=== PATIENT | female | born 1975 | race Two or more races ===

== ENCOUNTER 2024-12-22 17:33 | Inpatient (IN) | payer MEDICAID, OTHER ==
[~2024-12-22] VITALS: Ht 154.9 cm; Wt 110.5 kg
--- NOTE | 2024-12-22 18:15 | ECG ---
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
--- NOTE | 2024-12-22 18:29 | ED.PDOC ---
History of Present Illness HPI Comments 49y F who presents to the ED for chief complaint of multiple complaints. Pt states since Friday, she has been having shortness of breath with associated multiple episodes of hematemesis and diffuse abdominal pain. Pt states she also started to have L leg weakness and weakness. Pt states she also had L sided pressure like chest pain rating the pain 8/10, with no associated exacerbating or relieving factors. Pt otherwise states she had bout of COVID 8x weeks prior. Pt otherwise denies any other symptoms at this time. Chief Complaint: General Weakness Time Seen by MD: 18:25 Reviewed Notes: Medications, Allergies Allergies: Coded Allergies: Prochlorperazine (Verified Allergy, Unknown, 12/22/24) Information Source: Patient, Past Medical Record Mode of Arrival: Ambulatory Severity: Moderate Timing: Days Duration: Since onset Prehospital treatment: None Past Medical History PAST MEDICAL HISTORY: Denies Past Medical History (Other): intestinal surgery during childhood Surgical History: ASSET MANAGER History: Denies all ASSET MANAGER Hx Family History Family History: Reviewed,noncontributory to illness Social History Smoker: Non-Smoker Alcohol: Denies ETOH Use Drugs: Denies Drug Use Lives In: Home Constitutional: reports: malaise, weakness; denies: chills, diaphoresis, fatigue, fever, sweats, others EENTM: denies: blurred vision, double vision, ear bleeding, ear discharge, ear drainage, ear pain, ear ringing, eye pain, eye redness, hearing loss, mouth pain, mouth swelling, nasal discharge, nose bleeding, nose congestion, nose pain, photophobia, tearing, throat pain, throat swelling, voice changes, others Respiratory: reports: shortness of breath; denies: cough, hemoptysis, orthopnea, SOB at rest, SOB with excertion, stridor, wheezing, others Cardiovascular: denies: chest pain, dizzy spells, diaphoresis, Dyspnea on exertion, edema, irregular heart beat, left arm pain, lightheadedness, palpitations, PND, syncope, others Gastrointestinal: reports: hematemesis; denies: abdomen distended, abdominal pain, blood streaked bowels, constipated, diarrhea, dysphagia, difficulty swallowing, melena, nausea, poor appetite, poor fluid intake, rectal bleeding, rectal pain, vomiting, others Genitourinary: denies: abnormal vagina bleeding, burning, dyspareunia, dysuria, flank pain, frequency, hematuria, incontinence, pain, , vagina discharge, urgency, others Neurological: denies: dizziness, fainting, headache, left sided numbness, left sided weakness, numbness, paresthesia, pre-existing deficit, right sided numbness, right sided weakness, seizure, speech problems, tingling, tremors, weakness, others Musculoskeletal: reports: joint swelling (LLE); denies: back pain, gout, joint pain, muscle pain, muscle stiffness, neck pain, others Integumetry: denies: bruises, change in color, change in hair/nails, dryness, laceration, lesions, lumps, rash, wounds, others Allergic/Immunocompromised: denies: Difficulty Healing, Frequent Infections, Hives, Itching, others Hematologic/Lymphatic: denies: anemia, blood clots, easy bleeding, easy bruising, swollen glands, others Endocrine: denies: excessive hunger, excessive sweating, excessive thirst, excessive urination, flushing, intolerance to cold, intolerance to heat, unexplained weight gain, unexplained weight loss, others Psychiatric: denies: anxiety, bipolar disorder, depression, hopeless, panic disorder, schizophrenia, sleepless, suicidal, others All Other Systems: Reviewed and Negative Physical Exam General Appearance: Moderate Distress HEENT: Normal ENT Inspection, Pharynx Normal, TMs Normal Neck: Full Range of Motion, Non-Tender, Normal, Normal Inspection Respiratory: Chest Non-Tender, Lungs Clear, No Accessory Muscle Use, No Respiratory Distress, Normal Breath Sounds Cardiovascular: No Edema, No JVD, No Murmur, No Gallop, Normal Peripheral Pulses, Regular Rate/Rhythm Breast Exam: Deferred Gastrointestinal: No Organomegaly, Non Tender, No Pulsatile Mass, Normal Bowel Sounds, Soft Genitalia: Deferred Pelvic: Deferred Rectal: Deferred Extremities: No calf tenderness, Normal capillary refill, No pedal edema Musculoskeletal : Location: Left Extremity Location: Leg Apperance: Swelling, Tenderness: Moderate Neurologic: Alert, publicity person II-XII nml as Tested, Motor Weakness, Normal Affect, Normal Mood, No Sensory Deficits Cerebellar Function: Normal Reflexes: Normal Skin: Dry, Normal Color, Warm Lymphatic: No Adenopathy Was a procedure done? Was a procedure done?: No EKG EKG : Pulse Rate (adult): 123 [place]: Normal Cardiac Rhythm: ST Block: None ST: Nonsp Differential Dx Considerations may include: esophageal varices, pancreatics, UTI, PE,DVT, colitis, enteritis, anemia, dehyration, PNA, acute respiratory distress, X-Ray, Labs, Meds, VS Vital Signs Date Time Temp Pulse Resp B/P (MAP) Pulse Ox O2 Delivery O2 Flow Rate FiO2 12/22/24 20:07 98.4 121 20 144/89 (107) 98 98.4 12/22/24 19:24 123 12/22/24 17:57 123 12/22/24 17:36 98.6 129 22 150/90 95 98.6 Lab Test 12/22/24 19:23 12/22/24 18:23 Range/Units Troponin I High Sensitivity < 3 L 3 L </=34 ng/L Vitamin B12 Level Pending Vitamin D 25-Hydroxy Pending White Blood Count 4.9 4.4-10.8 10^3/uL Red Blood Count 3.73 L 4.0-5.20 10^6/uL Hemoglobin 11.9 L 12.2-16.2 g/dL Hematocrit 35.3 L 36.0-46.0 % Mean Corpuscular Volume 94.6 80.0-100.0 fL Mean Corpuscular Hemoglobin 32.0 28.0-32.0 pg Mean Corpuscular Hemoglobin Concent 33.8 32.0-36.0 g/dL Red Cell Distribution Width 17.1 H 11.8-14.3 % Platelet Count 115 L 140-450 10^3/uL Mean Platelet Volume 7.4 6.9-10.8 fL Neutrophils (%) (Auto) 72.6 37.0-80.0 % Lymphocytes (%) (Auto) 17.7 10.0-50.0 % Monocytes (%) (Auto) 7.7 0.0-12.0 % Eosinophils (%) (Auto) 1.6 0.0-7.0 % Basophils (%) (Auto) 0.4 0.0-2.0 % Neutrophils # (Auto) 3.5 1.6-8.6 10 ^3/uL Lymphocytes # (Auto) 0.9 0.4-5.4 10 ^3/uL Monocytes # (Auto) 0.4 0-1.3 10 ^3/uL Eosinophils # (Auto) 0.1 0-0.8 10 ^3/uL Basophils # (Auto) 0 0-0.2 10 ^3/uL Nucleated Red Blood Cells 0.1 % D-Dimer, Quantitative 1.41 H 0.0-0.49 mg/L FEU Sodium Level 136 136-145 mmol/L Potassium Level 3.3 L 3.5-5.1 mmol/L Chloride Level 98 98-107 mmol/L Carbon Dioxide Level 27 20-31 mmol/L Anion Gap 11 5-15 Blood Urea Nitrogen < 5 L 9-23 mg/dL Creatinine 0.58 0.550-1.02 mg/dL Glomerular Filtration Rate Calc 111 >90 mL/min BUN/Creatinine Ratio 8.6 L 10.0-20.0 Serum Glucose 158 H 74-106 mg/dL Hemoglobin A1c Pending Calcium Level 8.4 L 8.7-10.4 mg/dL Phosphorus Level Pending Magnesium Level Pending Total Bilirubin Pending Direct Bilirubin Pending Aspartate Amino Transferase (AST) Pending Alanine Aminotransferase (ALT) Pending Alkaline Phosphatase Pending Total Protein Pending Albumin Pending Thyroid Stimulating Hormone (TSH) Pending Beta HCG, Quantitative Pending PROCEDURE(s): LLDVT - LT Lower DVT Impression: 1. No left femoropopliteal venous thrombosis The patient's CBC shows anemia with a hemoglobin of 11.9 The patient's D-dimer is 1.41 The chemistry panel is within normal limits. The CAT scan of the chest is pending The patient is being admitted The CAT scan will be followed by the hospitalist Images Reviewed?: Images reviewed and evaluated by me Time of 1ST Reevaluation: 17:00 Reevaluation 1ST: Unchanged Patient Education/Counseling: Diagnosis, Treatment, Prognosis Family Education/Counseling: No Family Present SEPSIS Sepsis Screen Date sepsis recognized/suspect: Dec 22, 2024 Time Sepsis recognized/suspect: 1737 Recent Procedure: No On Antibiotic Therapy: No Respiratory Rate >20: Yes Heart Rate >90: Yes Temp<36 C (96.8 F) or >38.3 C: No SBP <90 or MAP <65 mmHG: No New Acute Mental Status Change: No Is the patient on CPAP, BIPAP,: No Physician Orders Urinalysis (12/22/24 18:05) Heplock Iv (12/22/24 18:05) Healthcare Business Analyst (12/22/24 18:05) Blood Pressure (12/22/24 18:05) Pulse Oximetry (12/22/24 18:05) Lt Lower Dvt (12/22/24 18:05) Ct Angio Chest Contrast (12/22/24 18:05) Electrocardigram (12/22/24 19:05) Electrocardigram (12/22/24 21:05) Drug Screen (12/22/24 20:16) Magnesium (12/22/24 20:16) Hepatic Panel (12/22/24 20:16) Hemoglobin A1c (12/22/24 20:16) Complete Blood Count (12/23/24 04:00) Basic Metabolic Panel (12/23/24 04:00) Phosphorus (12/22/24 20:16) Thyroid Stimulating Hormone (12/22/24 20:16) Vitamin B12 (12/22/24 20:16) Vitamin D, 25-Hydroxy (12/22/24 20:16) Lactic Acid W/ Reflex Order (12/22/24 20:16) Beta Hcg, Quantitative (12/22/24 20:16) Vital Signs Date Time Temp Pulse Resp B/P (MAP) Pulse Ox O2 Delivery O2 Flow Rate FiO2 12/22/24 20:07 98.4 121 20 144/89 (107) 98 98.4 12/22/24 19:24 123 12/22/24 17:57 123 12/22/24 17:36 98.6 129 22 150/90 95 98.6 Laboratory Tests Test 12/22/24 18:23 White Blood Count 4.9 10^3/uL (4.4-10.8) Departure 1 Departure Time of Disposition: 20:31 Impression: Primary Impression: Acute chest pain Additional Impression: Elevated d-dimer Disposition: 09 ADMITTED INPATIENT Admit to: Tele Condition: Fair Critical Care Note Critical Care Time?: Yes (45 min-critical care time only) Stability Stability form required: Yes Unstable for transfer: Telemetry monitoring (Telemetry monitoring required), ED Physician Assesment (Clinical assesment) Heart Score Heart Score: Heart Score Response (Comments) Value History Slightly Suspicious 0 EKG Normal 0 Age 45-64 1 Risk Factors No known risk factors 0 Troponin Normal limit 0 Total 1 I personally scribed for NIRAJ GARCIA MD ([email or web address]) on 12/22/24 at 18:29. Anju ctronically submitted by Kelley Poole ([email or web address]). I personally scribed for INRAJ GARCIA MD ([email or web address]) on 12/22/24 at 19:38. Electronically submitted by Kelley Poole ([email or web address]). NIRAJ GARCIA MD Dec 22, 2024 18:29
[2024-12-22 18:44] LABS: Hematocrit 35.3 % (36.0-46.0); Hemoglobin 11.9 g/dL (12.2-16.2); Mean Corpuscular Hemoglobin 32.0 pg (28.0-32.0); Mean Corpuscular Volume 94.6 fL (80.0-100.0); Nucleated Red Blood Cells % 0.1 %
[2024-12-22 18:52] LABS: Chloride 98 mmol/L (98-107)
[2024-12-22 18:53] LABS: Anion Gap 11 (5-15); Carbon Dioxide 27 mmol/L (20-31)
[2024-12-22 19:07] LABS: BUN/Creatinine Ratio 8.6 (10.0-20.0); Blood Urea Nitrogen < 5 mg/dL (9-23); Calcium 8.4 mg/dL (8.7-10.4); Glucose 158 mg/dL (74-106); Potassium 3.3 mmol/L (3.5-5.1); Sodium 136 mmol/L (136-145)
--- NOTE | 2024-12-22 19:15 | DVH ---
Left lower extremity venous duplex Clinical History: pain Comparison: None Technique: Duplex Doppler evaluation of the deep venous system of the left lower extremity from the common femor al vein to the popliteal vein including color Doppler and spectral/pulsed waveform analysis was perfo rmed. Findings: The common femoral vein demonstrates appropriate compressibility and waveform variability. There is compressibility/patency of the great saphenous vein at the proximal thigh. The femoral vein demonstrates appropriate compressibility and waveform variability. The deep femoral vein demonstrates appropriate compressibility and waveform variability. The popliteal vein demonstrates appropriate compressibility and waveform variability. There is normal compressibility at the tibioperoneal trunk. Impression: 1. No left femoropopliteal venous thrombosis.
[2024-12-22 20:44] LABS: Albumin 3.4 g/dL (3.2-4.8); Magnesium 1.7 mg/dL (1.6-2.6)
[2024-12-22 21:01] LABS: Thyroid Stimulating Hormone 2.56 uIU/mL (0.55-4.78)
[2024-12-22] MEDS: SODIUM CHLORIDE 0.9% 500 ML IV ONE ×2 (21:26→21:57)
[2024-12-22] MEDS: IOHEXOL 350 MG/ML 100ML IJ ONE ×2 (21:26)
[2024-12-22 21:28] LABS: Alanine Aminotransferase 51.0 U/L (7-40); Alkaline Phosphatase 193.0 U/L (46-116); Beta HCG, Quantitative 0.2 mIU/mL (1.5-4.2); Bilirubin, Direct 1.1 mg/dL (<0.3); Bilirubin, Total 2.3 mg/dL (0.2-1.0); Total Protein 8.3 g/dL (5.7-8.2)
[2024-12-22] MEDS ORDERED: ACETAMINOPHEN 325 MG TAB PO PRN (21:30)
[2024-12-22 21:38] LABS: Lactic Acid w/Reflex 4.1 mmol/L (0.4-2.0)
--- NOTE | 2024-12-22 21:50 | DVH ---
EXAM: CT CT ANGIO CHEST CONTRAST History: pain and sob Comparison Study: None TECHNIQUE: A digital enterprise infrastructure architect image was obtained. During the uneventful, intravenous administration of c ontrast material, multislice data acquisition was obtained through the chest. 3-D postprocessing is performed by technologist including MIP imaging Radiation Dose : CTDI vol 29.37 mGy, DLP 29.37 mGy*cm. Findings: Evaluation is degraded by respiratory motion. Lungs: There is mosaic attenuation throughout the lungs. Pleura: Unremarkable Heart/Great vessels: No cardiomegaly or pericardial effusion. There is no CT evidence of central pulm onary embolism. Suboptimal evaluation of peripheral pulmonary arteries. No CT evidence of right hea rt strain. Mediastinum: Nonspecific mildly enlarged mediastinal nodes measuring up to 12 mm short axis. Soft tissues/Bones: Unremarkable Upper abdomen: Diffuse hypoattenuation of the liver suggestive of hepatic steatosis. Suboptimally ass essed multifocal regions of low-attenuation within the periphery of the liver. Incompletely assessed hepatomegaly. Incompletely assessed upper abdominal ascites. Incompletely assessed right renal cyst. Splenomegaly. Impression: 1. No CT evidence of acute central pulmonary embolism. Suboptimal assessment of the peripheral pulmo nary arteries. No CT evidence of right heart strain. 2. Nonspecific mosaic attenuation of the lungs, which may be referable to air trapping in the appropr iate clinical setting. 3. Nonspecific mild mediastinal adenopathy. 4. Incompletely assessed hepatomegaly and hepatic steatosis with regions of low attenuation within th e periphery of the liver. MRI of the abdomen is suggested in further assessment. 5. Incompletely assessed upper abdominal ascites. 6. Additional findings as detailed.
--- NOTE | 2024-12-22 21:54 | DVH ---
CLINICAL HISTORY: SOB TECHNIQUE: Chest 2 views of the chest were obtained. COMPARISON: CT CT ANGIO CHEST CONTRAST on DOS: 12/22/24 FINDINGS: The heart size and pulmonary vasculature are normal. The lungs are clear. No pleural effusion is pres ent. IMPRESSION: NO ACUTE CARDIOPULMONARY PROCESS.
[2024-12-22] MEDS: PANTOPRAZOLE 40 MG/10 ML VIAL INJ IV ONE (21:57)
[2024-12-22] MEDS: ONDANSETRON HCL 4 MG/2 ML VIAL IV ONE (21:57)
[2024-12-22 22:50] LABS: COVID19 ANTIGEN SOFIA FIA NEGATIVE (NEGATIVE)
[2024-12-22] MEDS ORDERED: DEXTROSE (50%) 50ML SYRG IV PRN (23:00)
--- NOTE | 2024-12-22 23:03 | DVHHPRES ---
History of Present Illness Resident Creating Document: SABINE BLACK History of Present Illness Ms. Joshua is a 49 year old female with prior medical history of alcohol abuse, who presents today with chief complaint of nausea and lethargy. The patient states that since Friday she has had progressive onset of shortness of breath on minimal exertion, generalized body aches, diffuse abdominal pain, diarrhea, vomiting, left leg swelling, left sided pressure like chest pain, non-radiating, 8/10 intensity, without aggravating or relieving factors. She states that she h ad COVID 8 weeks prior and has not felt well since. Due to persistence of shortness of breath, the patient sought medical attention in the emergency department. On evaluation in the ED, the patient was afebrile, tachycardic, and hypertensive. Twelve lead EKG Initial labs show microcytic anemia, thrombocytopenia, hypokalemia, elevated LFTs, A1c 7.9, D-dimer 1.41, and lactic acid 4.1. UA with no significant findings, UDS negative, plasma/serum alcohol 64.6. Troponins were negative. chest x-ray shows no acute cardiopulmonary process. CT angio shows no evidence of acute central pulmonary embolism, no evidence of right heart strain, nonspecific mosaic attenuation of the lungs. Left venous duplex ultrasound shows no evidence of DVT. Patient was started on IV Protonix, IV fluids, and IV antibiotics. She was admitted for further workup and monitoring. Psych: Addictions (Alcoholism) Past Surgical History: , Other (Intestinal surgery at ) Family History: None Smoke: No ALCOHOL: heavy (Drinks 2-4 alcoholic beverages daily) Drugs: None Lives: with Family Domestic Violence: Neg Review of Systems Review of Systems Constitutional: Refers generalized body aches and malaise, Denies weight loss, fever and chills. HEENT: Denies changes in vision and hearing. Respiratory: Refers shortness of breath denies cough Cardiovascular: Refers left-sided chest tightness, Denies palpitations GI: Refers diarrhea and vomiting, Denies abdominal distention, diarrhea : Denies dysuria and urinary frequency. Musculoskeletal: Refers left-sided leg swelling Skin: Denies rash and pruritus. Neurological: denies dizziness headache vision or hearing problems Allergies: Coded Allergies: Prochlorperazine (Verified Allergy, Unknown, 12/22/24) Medications Current Medications Medications Dose Ordered Sig/Gunnar Route Start Time Stop Time Status Last Admin Dose Admin Acetaminophen 325 mg Q4HP PRN PO 12/22/24 21:30 Enoxaparin Sodium 40 mg DAILY SC 12/23/24 10:00 Ondansetron HCl 4 mg Q4HPRN PRN IV 12/23/24 01:45 Pantoprazole Sodium 40 mg DAILY IV 12/23/24 10:00 Ceftriaxone Sodium 50 ml @ 100 mls/hr DAILY@09 IV 12/22/24 23:00 UNV Azithromycin 250 ml @ 125 mls/hr DAILY IV 12/22/24 23:00 UNV Diagnostic Test (Pha) 1 strip ACHS 12/23/24 07:00 UNV Insulin Human Regular ACHS SC 12/23/24 07:00 UNV Dextrose 50 ml UD PRN IV 12/22/24 23:00 UNV Sodium Chloride 1,000 ml @ 100 mls/hr Q10H IV 12/22/24 23:00 UNV Exam Vital Signs Vital Signs Date Time Temp Pulse Resp B/P (MAP) Pulse Ox O2 Delivery O2 Flow Rate FiO2 12/22/24 22:24 98.5 115 20 145/61 (89) 98 98.5 Exam General: The patient alert and oriented in person place and time. Patient following commands HEENT: Normocephalic, atraumatic, normal reactive pupils, EOM intact, pink conjunctiva, pink dry mucous membrane Respiratory/pulmonary: Bilateral chest expansion, no pain on palpation of chest wall, clear lungs bilaterally, vesicular murmurs present in almost all lung viera, no associated crackles or wheezes. Cardiovascular: Normal RRR, normal S1 and S2, no murmurs Abdomen: Abdomen nondistended, normal bowel sounds, soft, there is no pain to palpation in any of the abdominal quadrants, no palpable masses. Extremities: No deformities, bilateral leg edema L>R, normal pulses Skin: No rashes or pruritus, there is no sacral edema present at this time. Neurological: Intact cranial nerves with no focal neurologic deficits, patient with bilateral tremors Labs/Xrays Labs Test 12/22/24 22:50 12/22/24 21:43 12/22/24 20:55 12/22/24 19:23 Range/Units Influenza Type A Antigen Negative Negative Influenza Type B Antigen Negative Negative SARS-CoV-2 Antigen (Rapid) Negative NEGATIVE Troponin I High Sensitivity < 3 L </=34 ng/L Vitamin B12 Level 318 211-911 pg/mL Vitamin D 25-Hydroxy 59.7 30.0-100 ng/mL Test 12/22/24 18:23 Range/Units White Blood Count 4.9 4.4-10.8 10^3/uL Red Blood Count 3.73 L 4.0-5.20 10^6/uL Hemoglobin 11.9 L 12.2-16.2 g/dL Hematocrit 35.3 L 36.0-46.0 % Mean Corpuscular Volume 94.6 80.0-100.0 fL Mean Corpuscular Hemoglobin 32.0 28.0-32.0 pg Mean Corpuscular Hemoglobin Concent 33.8 32.0-36.0 g/dL Red Cell Distribution Width 17.1 H 11.8-14.3 % Platelet Count 115 L 140-450 10^3/uL Mean Platelet Volume 7.4 6.9-10.8 fL Neutrophils (%) (Auto) 72.6 37.0-80.0 % Lymphocytes (%) (Auto) 17.7 10.0-50.0 % Monocytes (%) (Auto) 7.7 0.0-12.0 % Eosinophils (%) (Auto) 1.6 0.0-7.0 % Basophils (%) (Auto) 0.4 0.0-2.0 % Neutrophils # (Auto) 3.5 1.6-8.6 10 ^3/uL Lymphocytes # (Auto) 0.9 0.4-5.4 10 ^3/uL Monocytes # (Auto) 0.4 0-1.3 10 ^3/uL Eosinophils # (Auto) 0.1 0-0.8 10 ^3/uL Basophils # (Auto) 0 0-0.2 10 ^3/uL Nucleated Red Blood Cells 0.1 % D-Dimer, Quantitative 1.41 H 0.0-0.49 mg/L FEU Sodium Level 136 136-145 mmol/L Potassium Level 3.3 L 3.5-5.1 mmol/L Chloride Level 98 98-107 mmol/L Carbon Dioxide Level 27 20-31 mmol/L Anion Gap 11 5-15 Blood Urea Nitrogen < 5 L 9-23 mg/dL Creatinine 0.58 0.550-1.02 mg/dL Glomerular Filtration Rate Calc 111 >90 mL/min BUN/Creatinine Ratio 8.6 L 10.0-20.0 Serum Glucose 158 H 74-106 mg/dL Hemoglobin A1c 7.9 H <5.7 % A1C Calcium Level 8.4 L 8.7-10.4 mg/dL Phosphorus Level 1.6 L 2.4-5.1 mg/dL Magnesium Level 1.7 1.6-2.6 mg/dL Total Bilirubin 2.3 H 0.2-1.0 mg/dL Direct Bilirubin 1.1 H <0.3 mg/dL Aspartate Amino Transferase (AST) 213 H 13-40 U/L Alanine Aminotransferase (ALT) 51 H 7-40 U/L Alkaline Phosphatase 193 H 46-116 U/L Total Protein 8.3 H 5.7-8.2 g/dL Albumin 3.4 3.2-4.8 g/dL Thyroid Stimulating Hormone (TSH) 2.56 0.55-4.78 uIU/mL Beta HCG, Quantitative 0.2 L 1.5-4.2 mIU/mL SEPSIS Sepsis Screen Date sepsis recognized/suspect: Dec 22, 2024 Time Sepsis recognized/suspect: 1737 Recent Procedure: No On Antibiotic Therapy: No Respiratory Rate >20: Yes Heart Rate >90: Yes Temp<36 C (96.8 F) or >38.3 C: No SBP <90 or MAP <65 mmHG: No New Acute Mental Status Change: No Is the patient on CPAP, BIPAP,: No Physician Orders Urinalysis (12/22/24 18:05) Heplock Iv (12/22/24 18:05) Manager Of Health (12/22/24 18:05) Blood Pressure (12/22/24 18:05) Pulse Oximetry (12/22/24 18:05) Lt Lower Dvt (12/22/24 18:05) Ct Angio Chest Contrast (12/22/24 18:05) Electrocardigram (12/22/24 19:05) Electrocardigram (12/22/24 21:05) Drug Screen (12/22/24 20:16) Complete Blood Count (12/23/24 04:00) Basic Metabolic Panel (12/23/24 04:00) Admit (12/22/24 21:24) Allergies (12/22/24 21:24) Code Status (12/22/24 21:24) Acetaminophen Tablet (Tylenol Tablet) (12/22/24 21:30) Enoxaparin Sodium (Lovenox) (12/23/24 10:00) Echo 2d Mode Cardiac Dop (12/22/24 21:24) Condition: Stable (12/22/24 21:24) Stat Ekg For Chest Pain (12/22/24 21:24) Notify Md Of Changes From Base (12/22/24 21:24) Emergency Dysrhythmia Protocol (12/22/24 21:24) Rhythm Strips Once Every Shift (12/22/24 21:24) Chest Two Views Routine (12/22/24 21:24) Potassium Chl 20meq/100ml (12/22/24 21:45) Consistent Carb(Ccho)Diabetes (12/23/24 Breakfast) Pantoprazole (Protonix) (12/23/24 10:00) Ondansetron Hcl (Zofran) (12/23/24 01:45) Blood Alcohol (12/22/24 22:48) Ceftriaxone 1gm/50ml (Rocephin) (12/22/24 23:00) Azithromycin 500mg/ 250ml (Zithromax 50 (12/22/24 23:00) Glucose Blood (Accu-Chek Comfort Curve T (12/23/24 07:00) Insulin R (Human) (Insulin R) (12/23/24 07:00) Dextrose 50% Syringe (12/22/24 23:00) Sodium Chloride 0.9% (12/22/24 23:00) Vital Signs Date Time Temp Pulse Resp B/P (MAP) Pulse Ox O2 Delivery O2 Flow Rate FiO2 12/22/24 22:24 98.5 115 20 145/61 (89) 98 98.5 12/22/24 20:07 98.4 121 20 144/89 (107) 98 98.4 12/22/24 19:24 123 12/22/24 17:57 123 12/22/24 17:36 98.6 129 22 150/90 95 98.6 Laboratory Tests Test 12/22/24 18:23 12/22/24 20:55 12/22/24 22:50 White Blood Count 4.9 10^3/uL (4.4-10.8) Lactic Acid Level 4.1 mmol/L (0.4-2.0) *H Pending Medications Medications Dose Ordered Sig/Gunnar Route Start Time Stop Time Status Last Admin Dose Admin Pantoprazole Sodium 40 mg ONCE ONCE IV 12/22/24 21:45 12/22/24 21:47 DC 12/22/24 21:57 40 MG Sodium Chloride 500 ml @ 500 mls/hr Q1H ONCE IV 12/22/24 18:15 12/22/24 19:14 DC 12/22/24 21:26 500 MLS/HR Sodium Chloride 500 ml @ 500 mls/hr Q1H ONCE IV 12/22/24 21:45 12/22/24 22:44 DC 12/22/24 21:57 500 MLS/HR Assessment/Plan Assessment/Plan Assessment and Plan: Possible sepsis secondary to pneumonia (gram positive/gram negative/viral) vs gastroenteritis Lactic acidosis secondary to above Dehydration secondary to above - Ceftriaxone 1 g IV daily - Azithromycin 500 mg IV daily - NS 500 cc bolus x 3 - NS maintenance fluids 100 cc/hr - Blood cultures ordered Intractable vomiting likely due to infectious gastroenteritis - IV fluids - Zofran 4 mg IV Q.4 hours PRN Hypokalemia, 3.3 - Potassium 20 mEq IV, once Mild alcohol withdrawal -CIWA 6 -Monitor patient with serial CIWA scores Alcohol Use Disorder - I have counseled the patient on the importance of complete alcohol cessation for over 12 minutes. Newly diagnosed Type 2 Diabetes Mellitus with hyperglycemia, HbA1c: 7.9 -Mild SSI -Accu-chek -Consistent carbohydrate diet Ruled out PE - CT angio: No CT evidence of acute central pulmonary embolism Ruled out DVT - left venous duplex ultrasound: No left femoral popliteal venous thrombosis Hepatic steatosis Calculated MELD score 27 Transaminitis secondary to above Morbid obesity Counseled strongly on healthy lifestyle habits Diet: Consistent Carbohydrate DVT prophylaxis: Lovenox 40 mg SC dailt GI prophylaxis: Protonix 40 mg IV daily Case discussed with Dr. Borrero Goals of care discussed with the patient and her for over 27 minutes. Full code. Plan discussed with: Patient, Spouse, Other (Nurses) My Orders Orders - SABINE BLACK Procedure Category Date Status Time Drug Screen LAB 12/22/24 Logged 20:16 Complete Blood Count LAB 12/23/24 Verified 04:00 Basic Metabolic Panel LAB 12/23/24 Verified 04:00 Admit ADMIT 12/22/24 Transmitted 21:24 Allergies HELIO 12/22/24 In Process 21:24 Code Status CODE 12/22/24 Transmitted 21:24 Acetaminophen Tablet PHA 12/22/24 In Process (Tylenol Tablet) 21:30 Enoxaparin Sodium PHA 12/23/24 In Process (Lovenox) 10:00 Echo 2d Mode Cardiac US 12/22/24 Logged DOP 21:24 Condition: Stable HELIO 12/22/24 In Process 21:24 Stat Ekg For Chest HELIO 12/22/24 In Process Pain 21:24 Notify Md Of Changes HELOI 12/22/24 In Process From Base 21:24 Emergency Dysrhythmia HELIO 12/22/24 In Process Protocol 21:24 Rhythm Strips Once HELIO 12/22/24 In Process Every Shift 21:24 Chest Two Views XY 12/22/24 Resulted Routine 21:24 Potassium Chl PHA 12/22/24 In Process 20meq/100ml 21:45 Consistent DIET 12/23/24 Transmitted Carb(Ccho)Diabetes Breakfast Pantoprazole PHA 12/23/24 In Process (Protonix) 10:00 Ondansetron Hcl PHA 12/23/24 In Process (Zofran) 01:45 Blood Alcohol LAB 12/22/24 In Process 22:48 Ceftriaxone 1gm/50ml PHA 12/22/24 Logged (Rocephin) 23:00 Azithromycin 500mg/ PHA 12/22/24 Logged 250ml (Zithromax 50 23:00 Glucose Blood PHA 12/23/24 Logged (Accu-Chek Comfort 07:00 Insulin R (Human) PHA 12/23/24 Logged (Insulin R) 07:00 Dextrose 50% Syringe PHA 12/22/24 Logged 23:00 Sodium Chloride 0.9% PHA 12/22/24 Logged 23:00 Date of Service: Dec 22, 2024 Billing Provider: JYOTHI SCHMID MD Common Visit Codes: [id number] INP/OBS CARE (HIGH) Secondary Visit Codes: [id number] CARE PLAN 30 MINUTES SABINE BLACK RESIDENT Dec 22, 2024 23:03 TG LORENZANA RESIDENT Dec 23, 2024 08:41
[2024-12-22 23:50] LABS: Urine Protein, UAD TRACE (Negative)
[2024-12-22 23:54] VITALS: BP 147/87; PULSE 118; TEMP 98.2; O2SAT 96
[2024-12-23] VITALS (8 sets, daily range): BP systolic 125–147; BP diastolic 70–91; PULSE 104–120; RESP 17–18; TEMP 97.8–98.3; O2SAT 96–98
[2024-12-23 00:05] LABS: Amphetamine Screen, Urine Neg (NEGATIVE); Barbiturate Scree,Urine Neg (NEGATIVE); Benzodiazephine Screen, Urine Neg (NEGATIVE); Cannabinoid Screen, Urine Neg (NEGATIVE); Cocaine Screen, Urine Neg (NEGATIVE); Opiate Scree,Urine Neg (NEGATIVE); Phencyclidine Screen, Urine Neg (NEGATIVE)
[2024-12-23] MEDS: ONDANSETRON HCL 4 MG/2 ML VIAL IV PRN (01:22)
[2024-12-23] MEDS: SODIUM CHLORIDE 0.9% 500 ML IV ONE (01:47)
[2024-12-23] MEDS: IOHEXOL 350 MG/ML 100ML IJ ONE (01:58)
[2024-12-23] MEDS: SODIUM CHLORIDE 0.9% 1,000 ML IV SCH (02:52)
[2024-12-23] MEDS: AZITHROMYCIN 500MG/ 250ML 250 ML IV SCH (02:52)
[2024-12-23] MEDS: POTASSIUM CHL 20MEQ/100ML 100 ML IV ONE (05:04)
[2024-12-23] MEDS: ACCU-CHEK COMFORT CURVE STRIP VI SCH (06:13)
[2024-12-23] MEDS: InsuLIN REG 1unit/0.01ml Soln (100units/ml) SC SCH (06:16)
[2024-12-23 08:05] LABS: INR 1.41 (0.9-1.15); Partial Thromboplastin Time 31.9 SEC (24.5-34.5); Prothrombin Time 14.4 sec (9.3-11.8)
[2024-12-23 08:06] LABS: Hematocrit 33.6 % (36.0-46.0); Hemoglobin 11.5 g/dL (12.2-16.2); Mean Corpuscular Hemoglobin 32.6 pg (28.0-32.0); Mean Corpuscular Volume 95.0 fL (80.0-100.0); Nucleated Red Blood Cells % 0.0 %
[2024-12-23 08:08] LABS: Albumin 3.3 g/dL (3.2-4.8); Anion Gap 10 (5-15); Carbon Dioxide 23 mmol/L (20-31); Chloride 100 mmol/L (98-107); Potassium 3.9 mmol/L (3.5-5.1); Total Protein 8.0 g/dL (5.7-8.2)
[2024-12-23 08:09] LABS: Alanine Aminotransferase 49 U/L (7-40); Alkaline Phosphatase 171 U/L (46-116); BUN/Creatinine Ratio 10.0 (10.0-20.0); Bilirubin, Total 3.1 mg/dL (0.2-1.0); Blood Urea Nitrogen < 5 mg/dL (9-23); Calcium 7.8 mg/dL (8.7-10.4); Glucose 138 mg/dL (74-106); Sodium 133 mmol/L (136-145)
[2024-12-23] MEDS: PANTOPRAZOLE 40 MG/10 ML VIAL INJ IV SCH (09:36)
[2024-12-23] MEDS: ENOXAPARIN SOD 40 MG/0.4 ML SYRINGE SC SCH (09:36)
--- NOTE | 2024-12-23 14:51 | DVHPN2 ---
Subjective Patient states that her nausea and abdominal pain has improved. Reviewed: Care Plan, H&P, Labs, Medications Changes from previous H/P or p: No Changes General: Per HPI Objective Vitals Vital Signs Date Time Temp Pulse Resp B/P (MAP) Pulse Ox O2 Delivery O2 Flow Rate FiO2 12/23/24 13:00 98.3 105 17 143/91 (108) 97 98.3 12/23/24 08:00 Room Air* 0 21 Intake/Output Intake and Output 12/23/24 07:00 Intake Total 2300 ml Balance 2300 ml Intake Oral 1500 ml IV Total 800 ml # Voids 1 General Appearance: Alert, Oriented X3, Cooperative, mild distress, Other (Obese) HEENT: Atraumatic, PERRLA Cardiovascular: Normal S1, Normal S2 Abdomen: Normal bowel sounds, Soft, No tenderness, No hepatospenomegaly Musculoskeletal: Normal sensory function, Normal motor function Neuro: Normal gait, Normal speech Skin: Dry, Intact Psych/Mental Status: Mental status NL Medications Current Medications Medications Dose Ordered Sig/Gunnar Route Start Time Stop Time Status Last Admin Dose Admin Enoxaparin Sodium 40 mg DAILY SC 12/23/24 10:00 12/23/24 09:36 40 MG Ondansetron HCl 4 mg Q4HPRN PRN IV 12/23/24 01:45 12/23/24 01:22 4 MG Pantoprazole Sodium 40 mg DAILY IV 12/23/24 10:00 12/23/24 09:36 40 MG Diagnostic Test (Pha) 1 strip ACHS 12/23/24 07:00 12/23/24 11:50 1 STRIP Insulin Human Regular ACHS SC 12/23/24 07:00 12/23/24 06:16 3 UNITS Dextrose 50 ml UD PRN IV 12/22/24 23:00 Sodium Chloride 1,000 ml @ 100 mls/hr Q10H IV 12/22/24 23:00 12/23/24 09:00 100 MLS/HR Thiamine HCl 100 mg DAILY IV 12/23/24 14:15 UNV Multivit/Ca Carb/ B Cmplx/FA/Prenat 1 tab DAILY PO 12/23/24 14:15 UNV Laboratory Results Laboratory Tests 12/23/24 07:09 Chemistry Test 12/22/24 18:23 12/23/24 07:09 Albumin 3.4 g/dL (3.2-4.8) 3.3 g/dL (3.2-4.8) Calcium Level 8.4 mg/dL (8.7-10.4) L 7.8 mg/dL (8.7-10.4) L Magnesium Level 1.7 mg/dL (1.6-2.6) Phosphorus Level 1.6 mg/dL (2.4-5.1) L Total Protein 8.3 g/dL (5.7-8.2) H 8.0 g/dL (5.7-8.2) Coagulation Test 12/22/24 18:23 12/23/24 07:09 D-Dimer, Quantitative 1.41 mg/L FEU (0.0-0.49) H Prothrombin Time 14.4 sec (9.3-11.8) H Prothrombin Time INR 1.41 (0.9-1.15) H Activated Partial Thromboplast Time 31.9 SEC (24.5-34.5) LFT Test 12/22/24 18:23 12/23/24 07:09 Alanine Aminotransferase (ALT) 51 U/L (7-40) H 49 U/L (7-40) H Alkaline Phosphatase 193 U/L (46-116) H 171 U/L (46-116) H Aspartate Amino Transferase (AST) 213 U/L (13-40) H 186 U/L (13-40) H Direct Bilirubin 1.1 mg/dL (<0.3) H Total Bilirubin 2.3 mg/dL (0.2-1.0) H 3.1 mg/dL (0.2-1.0) H HgA1c, TSH Test 12/22/24 18:23 Hemoglobin A1c 7.9 % A1C (<5.7) H Thyroid Stimulating Hormone (TSH) 2.56 uIU/mL (0.55-4.78) Urinalysis Test 12/22/24 22:15 Urine Color Yellow (Yellow) Urine Clarity Clear (Clear) Urine pH 7.5 (5.0-9.0) Urine Specific [place] > 1.050 (1.001-1.035) Urine Protein Trace (Negative) H Urine Ketones Negative (Negative) Urine Blood 1+ /uL (Negative) H Urine Nitrite Negative (Negative) Urine Bilirubin Negative (Negative) Urine Urobilinogen Normal mg/dL (Negative) Urine Leukocyte Esterase Negative /uL (Negative) Urine RBC 4 /hpf (0 - 4) Urine Microscopic WBC < 1 /HPF (0-5) Urine Squamous Epithelial Cells Few /hpf (<5) Urine Bacteria None seen /hpf (None Seen) Urine Glucose Normal mg/dL (Normal) Labs and/or images reviewed: Labs reviewed by me, Image(s) reviewed by me Assessment/Plan Assessment/Plan Impression: -alcoholism -alcohol rate liver disease -intractable nausea and vomiting -sirs, sepsis ruled out -new diagnosis diabetes mellitus -obesity Plan: -continue IV hydration -add thiamine, folic acid -stop IV antibiotic therapy -continue regular insulin sliding scale -Lifestyle modification education: Discussed with the patient the need to be abstinent from alcohol given changes with liver scan -antiemetics -reassess for discharge in a.m. Total time spent with patient discussing and formulating plan of care: 35 minutes. This medical document was created using an electronic medical record system with [employer] dictation system. Although this document has been carefully reviewed, there may still be some phonetic and typographical errors. These areas are purely typographical due to imperfections of the software programs, and do not reflect any compromise in the patient's medical care. Plan discussed with: Patient, Other (RN) My Orders Orders - KRISTEN COATES NP Procedure Category Date Status Time Thiamine Inj PHA 12/23/24 Logged 14:15 B-Complex W/ C & PHA 12/23/24 Logged Folic Tablet 14:15 Consistent DIET 12/23/24 Transmitted [facility]Diabetes Dinner Date of Service: Dec 23, 2024 Billing Provider: KRISTEN COATES NP Common Visit Codes: [id number] INP/OBS CARE(HIGH) KRISTEN COATES NP Dec 23, 2024 14:51
[2024-12-23] MEDS: THIAMINE 100mg/ml INJ (200mg/2ml VIAL) IV SCH (15:08)
[2024-12-23] MEDS: B-COMPLEX W/ C & FOLIC ACID(NEPHROVITE TAB) PO SCH (15:08)
[2024-12-24] MEDS: MELATONIN 5 MG TAB PO ONE (00:52)
[2024-12-24 01:00] VITALS: BP 133/83; PULSE 106; RESP 20; TEMP 98; O2SAT 96
[2024-12-24 04:49] VITALS: BP 120/77; PULSE 109; RESP 20; TEMP 98; O2SAT 93
[2024-12-24 09:00] VITALS: BP 128/82; PULSE 118; RESP 20; TEMP 97.8; O2SAT 96
[2024-12-24 13:00] VITALS: BP 134/88; PULSE 107; RESP 20; TEMP 97.7; O2SAT 95
[2024-12-24] MEDS ORDERED: LANC-268 XX (13:34)
[2024-12-24] MEDS ORDERED: BLOO1KIT60 XX (13:34)
[2024-12-24] MEDS ORDERED: LORA-655 PO (13:34)
[2024-12-24] MEDS ORDERED: THIA100T10 PO (13:34)
[2024-12-24] MEDS ORDERED: METF-370 PO (13:34)
--- NOTE | 2024-12-24 13:41 | DVHDS2 ---
Discharge Summary Date of Admission Dec 22, 2024 at 21:24 Date of Discharge: Dec 24, 2024 Admitting Diagnosis Rule out sepsis Labs/Diagnostic Data: Laboratory Results Test 12/24/24 11:34 12/23/24 12:13 12/23/24 07:09 12/22/24 22:15 POC Glucose 165 mg/dl (70-106) Lactic Acid Level 1.3 mmol/L (0.4-2.0) White Blood Count 5.5 10^3/uL (4.4-10.8) Red Blood Count 3.53 10^6/uL (4.0-5.20) Hemoglobin 11.5 g/dL (12.2-16.2) Hematocrit 33.6 % (36.0-46.0) Mean Corpuscular Volume 95.0 fL (80.0-100.0) Mean Corpuscular Hemoglobin 32.6 pg (28.0-32.0) Mean Corpuscular Hemoglobin Concent 34.3 g/dL (32.0-36.0) Red Cell Distribution Width 17.3 % (11.8-14.3) Platelet Count 103 10^3/uL (140-450) Mean Platelet Volume 7.2 fL (6.9-10.8) Neutrophils (%) (Auto) 77.1 % (37.0-80.0) Lymphocytes (%) (Auto) 13.4 % (10.0-50.0) Monocytes (%) (Auto) 8.2 % (0.0-12.0) Eosinophils (%) (Auto) 0.9 % (0.0-7.0) Basophils (%) (Auto) 0.4 % (0.0-2.0) Neutrophils # (Auto) 4.2 10 ^3/uL (1.6-8.6) Lymphocytes # (Auto) 0.7 10 ^3/uL (0.4-5.4) Monocytes # (Auto) 0.5 10 ^3/uL (0-1.3) Eosinophils # (Auto) 0.1 10 ^3/uL (0-0.8) Basophils # (Auto) 0 10 ^3/uL (0-0.2) Nucleated Red Blood Cells 0.0 % Prothrombin Time 14.4 sec (9.3-11.8) Prothrombin Time INR 1.41 (0.9-1.15) Activated Partial Thromboplast Time 31.9 SEC (24.5-34.5) Sodium Level 133 mmol/L (136-145) Potassium Level 3.9 mmol/L (3.5-5.1) Chloride Level 100 mmol/L (98-107) Carbon Dioxide Level 23 mmol/L (20-31) Anion Gap 10 (5-15) Blood Urea Nitrogen < 5 mg/dL (9-23) Creatinine 0.50 mg/dL (0.550-1.02) Glomerular Filtration Rate Calc 115 mL/min (>90) BUN/Creatinine Ratio 10.0 (10.0-20.0) Serum Glucose 138 mg/dL (74-106) Calcium Level 7.8 mg/dL (8.7-10.4) Total Bilirubin 3.1 mg/dL (0.2-1.0) Aspartate Amino Transferase (AST) 186 U/L (13-40) Alanine Aminotransferase (ALT) 49 U/L (7-40) Alkaline Phosphatase 171 U/L (46-116) Total Protein 8.0 g/dL (5.7-8.2) Albumin 3.3 g/dL (3.2-4.8) Urine Color Yellow (Yellow) Urine Clarity Clear (Clear) Urine pH 7.5 (5.0-9.0) Urine Specific Coleman > 1.050 (1.001-1.035) Urine Protein Trace (Negative) Urine Ketones Negative (Negative) Urine Blood 1+ /uL (Negative) Urine Nitrite Negative (Negative) Urine Bilirubin Negative (Negative) Urine Urobilinogen Normal mg/dL (Negative) Urine Leukocyte Esterase Negative /uL (Negative) Urine RBC 4 /hpf (0 - 4) Urine Microscopic WBC < 1 /HPF (0-5) Urine Squamous Epithelial Cells Few /hpf (<5) Urine Bacteria None seen /hpf (None Seen) Urine Glucose Normal mg/dL (Normal) Urine Opiates Screen Neg (NEGATIVE) Urine Fentanyl Screen Neg (NEGATIVE) Urine Barbiturates Screen Neg (NEGATIVE) Urine Phencyclidine Screen Neg (NEGATIVE) Urine Amphetamines Screen Neg (NEGATIVE) Urine Benzodiazepines Screen Neg (NEGATIVE) Urine Cocaine Screen Neg (NEGATIVE) Urine Cannabinoids Screen Neg (NEGATIVE) Test 12/22/24 21:43 12/22/24 20:55 12/22/24 19:23 12/22/24 18:23 Influenza Type A Antigen Negative (Negative) Influenza Type B Antigen Negative (Negative) SARS-CoV-2 Antigen (Rapid) Negative (NEGATIVE) Plasma/Serum Blood Alcohol 64.6 mg/dL (<10) Troponin I High Sensitivity < 3 ng/L (</=34) Vitamin B12 Level 318 pg/mL (211-911) Vitamin D 25-Hydroxy 59.7 ng/mL (30.0-100) D-Dimer, Quantitative 1.41 mg/L FEU (0.0-0.49) Hemoglobin A1c 7.9 % A1C (<5.7) Phosphorus Level 1.6 mg/dL (2.4-5.1) Magnesium Level 1.7 mg/dL (1.6-2.6) Direct Bilirubin 1.1 mg/dL (<0.3) Thyroid Stimulating Hormone (TSH) 2.56 uIU/mL (0.55-4.78) Beta HCG, Quantitative 0.2 mIU/mL (1.5-4.2) Other Laboratory Tests 12/23/24 07:09 Brief Hx & Hospital Course: History of Present Illness Ms. Joshua is a 49 year old female with prior medical history of alcohol abuse, who presents today with chief complaint of nausea and lethargy. The patient states that since Friday she has had progressive onset of shortness of breath on minimal exertion, generalized body aches, diffuse abdominal pain, diarrhea, vomiting, left leg swelling, left sided pressure like chest pain, non-radiating, 8/10 intensity, without aggravating or relieving factors. She states that she had COVID 8 weeks prior and has not felt well since. Due to persistence of shortness of breath, the patient sought medical attention in the emergency department. On evaluation in the ED, the patient was afebrile, tachycardic, and hypertensive. Twelve lead EKG Initial labs show microcytic anemia, thrombocytopenia, hypokalemia, elevated LFTs, A1c 7.9, D-dimer 1.41, and lactic acid 4.1. UA with no significant findings, UDS negative, plasma/serum alcohol 64.6. Troponins were negative. chest x-ray shows no acute cardiopulmonary process. CT angio shows no evidence of acute central pulmonary embolism, no evidence of right heart strain, nonspecific mosaic attenuation of the lungs. Left venous duplex ultrasound shows no evidence of DVT. Patient was started on IV Protonix, IV fluids, and IV antibiotics. She was admitted for further workup and monitoring. Course of hospitalization: Antibiotic therapy was stopped given patient's lack presentation of infection. Patient was started on IV hydration, thiamine, folic acid. Long discussion was made with the patient who states that she drinks 2-3 drinks every night. Patient has had trouble sleeping over the past two nights, and exhibits mild anxiety, but does not report having any tremors, hallucinations, or tachycardia. Patient was also found to have hemoglobin A1c of 7.9 for which she was placed on regular insulin sliding scale. Patient is requesting to be discharged home. Patient we will follow up with her PCP in 1-2 weeks. She will be continued on thiamine 100 mg p.o. daily, provided prescription for metformin 250 mg p.o. twice a day, diabetic Accu-Chek machine and lancets, and Ativan 0.5 mg p.o. at nighttime for insomnia. Patient has been seen by social worker palliative care regarding ETOH use, and states that she will follow up as an outpatient with the resources provided. She states that she will stop drinking alcohol at this time. She is agreeable with discharge plan. All questions answered. Physical examination General: Alert and Oriented x3. No acute distress. Well-nourished. Obese Eyes: EOMI. Anicteric. HENT: Moist mucous membranes. Lungs: Clear to auscultation bilaterally. No accessory muscle use. Cardiovascular: Regular rate and rhythm. No murmur. No JVD. Abdomen: Soft, non-tender and non-distended. No palpable masses. Extremities: No edema. Non-tender. Skin: No rashes or lesions. Warm. Neurologic: No focal neurological deficits. CN II-XII grossly intact, but not individually tested. Psychiatric: Cooperative. Appropriate mood and affect. Total time spent with patient discussing and formulating plan of care: 35 minutes. This medical document was created using an electronic medical record system with [employer] dictation system. Although this document has been carefully reviewed, there may still be some phonetic and typographical errors. These areas are purely typographical due to imperfections of the software programs, and do not reflect any compromise in the patient's medical care. Condition at Discharge: Guarded Final Diagnosis/Problems List Sirs secondary to ETOH abuse and early onset of alcohol withdrawal symptoms Secondary diagnosis: -alcoholism -alcohol related liver disease -intractable nausea and vomiting -sirs, sepsis ruled out -new diagnosis diabetes mellitus -obesity Discharge Disposition: Home Discharge Instruct/Medications Medications: Metformin 250 mg p.o. b.i.d. Thiamine 100 mg p.o. daily Ativan 0.5 mg p.o. q.h.s. for insomnia. Seven tablets dispense Scheduled Metformin Hydrochloride (Metformin Hcl), 0.5 TAB PO BID Thiamine Hcl (Vitamin B-1), 100 MG PO DAILY Scheduled PRN Lorazepam (Ativan), 0.5 MG PO HSPRN PRN Durable Medical Equipment Blood Glucose Monitoring Suppl (D-Care Glucometer Kit/Glu W/Device), KIT XX BID, (DME) Lancets (Accu-Chek Softclix Lancet), BOX XX BIDAC, (DME) 36 Discharge Statement: "Patient was advised to return to the ER or call 911 if any headaches, dizziness, shortness of breath, chest pain, abdominal pain, bleeding, fevers, or worsening of medical condition. Patient was counseled about treatment plan, medications, possible side effects, patientverbalized understanding. All questions were answered to the best of my ability. This discharge took greater then 30 minutes in planning, reviewing documentation, counseling the patient, and discussing with other team members." ASSESSMENT ASSESSMENT Assessment Date of Service: Dec 24, 2024 Billing Provider: KRISTEN COATES NP Common Visit Codes: 89637-CKU/OBS DISCH DAY >30min KRISTEN COATES NP Dec 24, 2024 13:41
[2024-12-24 14:35] VITALS: BP 128/82; PULSE 108; RESP 20; TEMP 36.5; O2SAT 96
[2024-12-24 16:24] VITALS: BP 151/98; PULSE 115; RESP 20; TEMP 98.9; O2SAT 95
== END 2024-12-24 17:29 | disposition home or self-care (01) | DRG 249 ==
LOC: ER 17:33 → OVERFLOW 21:24 → WEST WING 23:42
PROVIDERS: ADMIT Nurse Practitioner Acute Care; ATTEND Nurse Practitioner Acute Care
DX: A09 Infectious gastroenteritis and colitis, unspecified (principal); E87.20 Acidosis, unspecified; D69.6 Thrombocytopenia, unspecified; K92.0 Hematemesis; E86.0 Dehydration; K21.9 Gastro-esophageal reflux disease without esophagitis; E11.65 Type 2 diabetes mellitus with hyperglycemia; D50.9 Iron deficiency anemia, unspecified; E11.9 Type 2 diabetes mellitus without complications; K76.9 Liver disease, unspecified; E66.01 Morbid (severe) obesity due to excess calories; R65.10 Systemic inflammatory response syndrome (SIRS) of non-infectious origin without acute organ dysfunction; R74.01 Elevation of levels of liver transaminase levels; G47.00 Insomnia, unspecified; E87.6 Hypokalemia; F10.239 Alcohol dependence with withdrawal, unspecified; K76.0 Fatty (change of) liver, not elsewhere classified; F41.9 Anxiety disorder, unspecified; Z86.718 Personal history of other venous thrombosis and embolism; Z98.891 History of uterine scar from previous surgery; Z86.16 Personal history of COVID-19; Z79.84 Long term (current) use of oral hypoglycemic drugs; Y90.3 Blood alcohol level of 60-79 mg/100 ml
CPT/HCPCS: 36415; 71046; 71275; 80048; 80053; 80076; 80307; 80320; 81001; 82306; 82607; 82962; 83036; 83605; 83735; 84100; 84443; 84484; 84702; 85025; 85379; 85610; 85730; 87426; 87804; 93005; 93971; 96361; 96374; G0378; J1815; J2405; J2470; J3480

== ENCOUNTER 2025-02-13 22:38 | Emergency (ER) | payer MEDICAID ==
[~2025-02-13] VITALS: Ht 170.2 cm; Wt 100.0 kg
[~2025-02-13 22:38] MED LIST: BLOO1KIT60 XX; LANC-268 XX; LORA-655 PO; METF-370 PO; THIA100T10 PO
--- NOTE | 2025-02-13 23:25 | ED.PDOC ---
History of Present Illness HPI Comments 49 y/o obese F presents with c/c of nonradiating, midsternal chest tightness and shortness of breath. Significant history for diabetes and alcohol dependency and withdrawals. Patient reports on sudden, unprovoked, and atraumatic onset of symptoms, while at rest, laying in her bed, this evening. She complains also of 1x week history of nausea, vomiting, and chills. Denies any fever, abdominal pain, congestion, or further acute symptoms. Last alcohol drink was last night. Chief Complaint: Shortness of Breath Time Seen by MD: 22:50 Reviewed Notes: Nurses Notes, Medications, Allergies Allergies: Coded Allergies: Prochlorperazine (Verified Allergy, Unknown, 12/22/24) Home Meds Active Scripts Ondansetron Odt 4MG Tab (ZOFRAN PO) 4 Mg Tb, 4 MG PO Q8HP PRN for 7 Days, #21 TAB ODT TAB-DISSOLVE IN MOUTH, THEN SWALLOW Prov:NIRAJ GARCIA MD 02/14/25 Chlordiazepoxide Hcl (Ni-1) (I (Librium) 10 Mg Cap, 10 MG PO BID for 10 Days, #20 CAP Prov:NIRAJ GARCIA MD 02/14/25 Blood Glucose Monitoring Suppl (D-Care Glucometer Kit/Glu W/Device) 1 Kit Kit, KIT XX BID, #1 Prov:KRISTEN COATES NP 12/24/24 Lancets (Accu-Chek Softclix Lancet) Lancets Mis, BOX XX BIDAC, #1 Prov:KRISTEN COATES NP 12/24/24 Metformin Hydrochloride (Metformin Hcl) 500 Mg Tab, 0.5 TAB PO BID, #60 TAB 3 Refills Prov:KRISTEN COATES NP 12/24/24 Thiamine Hcl (VITAMIN B-1) 100 Mg Tb, 100 MG PO DAILY for 30 Days, #30 TAB Prov:KRISTEN COATES NP 12/24/24 Lorazepam (Ativan) 0.5 Mg Tab, 0.5 MG PO HSPRN PRN for 7 Days, #7 TAB Prov:KRISTEN COATES NP 12/24/24 Information Source: Patient Mode of Arrival: Ambulatory Severity: Moderate Timing: Hours Duration: Since onset Prehospital treatment: None Past Medical History PAST MEDICAL HISTORY: Denies 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: 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 all TECHNICAL SERVICE ENGINEER Hx Family History Family History: Reviewed,noncontributory to illness Social History Smoker: Non-Smoker Alcohol: Denies ETOH Use Drugs: Denies Drug Use Lives In: Home Constitutional: reports: chills; denies: diaphoresis, fatigue, fever, malaise, sweats, weakness, others EENTM: denies: blurred vision, double vision, ear bleeding, ear discharge, ear drainage, ear pain, ear ringing, eye pain, eye redness, hearing loss, mouth pain, mouth swelling, nasal discharge, nose bleeding, nose congestion, nose pain, photophobia, tearing, throat pain, throat swelling, voice changes, others Respiratory: reports: shortness of breath; denies: cough, hemoptysis, orthopnea, SOB at rest, SOB with excertion, stridor, wheezing, others Cardiovascular: reports: chest pain; denies: dizzy spells, diaphoresis, Dyspnea on exertion, edema, irregular heart beat, left arm pain, lightheadedness, palpitations, PND, syncope, others Gastrointestinal: reports: nausea, vomiting; denies: abdomen distended, abdominal pain, blood streaked bowels, constipated, diarrhea, dysphagia, difficulty swallowing, hematemesis, melena, poor appetite, poor fluid intake, rectal bleeding, rectal pain, others Genitourinary: denies: abnormal vagina bleeding, burning, dyspareunia, dysuria, flank pain, frequency, hematuria, incontinence, pain, , vagina discharge, urgency, others Neurological: denies: dizziness, fainting, headache, left sided numbness, left sided weakness, numbness, paresthesia, pre-existing deficit, right sided numbness, right sided weakness, seizure, speech problems, tingling, tremors, weakness, others Musculoskeletal: denies: back pain, gout, joint pain, joint swelling, muscle pain, muscle stiffness, neck pain, others Integumetry: denies: bruises, change in color, change in hair/nails, dryness, laceration, lesions, lumps, rash, wounds, others Allergic/Immunocompromised: denies: Difficulty Healing, Frequent Infections, Hives, Itching, others Hematologic/Lymphatic: denies: anemia, blood clots, easy bleeding, easy bruising, swollen glands, others Endocrine: denies: excessive hunger, excessive sweating, excessive thirst, excessive urination, flushing, intolerance to cold, intolerance to heat, unexplained weight gain, unexplained weight loss, others Psychiatric: denies: anxiety, bipolar disorder, depression, hopeless, panic disorder, schizophrenia, sleepless, suicidal, others All Other Systems: Reviewed and Negative Physical Exam General Appearance: Mild Distress HEENT: Normal ENT Inspection, Pharynx Normal, TMs Normal Neck: Full Range of Motion, Non-Tender, Normal, Normal Inspection Respiratory: Chest Non-Tender, Lungs Clear, No Accessory Muscle Use, No Respiratory Distress, Normal Breath Sounds Cardiovascular: No Edema, No JVD, No Murmur, No Gallop, Tachycardia Breast Exam: Deferred Gastrointestinal: No Organomegaly, Non Tender, No Pulsatile Mass, Normal Bowel Sounds, Soft Genitalia: Deferred Pelvic: Deferred Rectal: Deferred Extremities: No calf tenderness, Normal capillary refill, Normal inspection, No rmal range of motion, Non-tender, No pedal edema Musculoskeletal : Apperance: Normal Neurologic: Alert, string laster II-XII nml as Tested, Motor Weakness, Normal Affect, Normal Mood, No Sensory Deficits Cerebellar Function: Normal Reflexes: Normal Skin: Dry, Normal Color, Warm Lymphatic: No Adenopathy Was a procedure done? Was a procedure done?: No EKG EKG : Pulse Rate (adult): 123 [place]: Normal Cardiac Rhythm: ST Block: None Hypertrophy: None ST: Normal Differential Dx Considerations may include: ID, PE, ACS, URI, PNA, angina, anxiety, alcohol withdrawal, electrolyte imbalance, dehydration, among others X-Ray, Labs, Meds, VS Vital Signs Date Time Temp Pulse Resp B/P (MAP) Pulse Ox O2 Delivery O2 Flow Rate FiO2 02/13/25 23:25 123 02/13/25 23:15 98.0 124 17 140/76 (97) 98 98.0 02/13/25 22:51 225 02/13/25 22:44 20 97 Room Air* 0 21 02/13/25 22:40 97.7 122 20 159/109 97 97.7 Lab Test 02/14/25 00:09 02/13/25 23:09 Range/Units Troponin I High Sensitivity Pending 5 </=34 ng/L White Blood Count 4.5 4.4-10.8 10^3/uL Red Blood Count 3.89 L 4.0-5.20 10^6/uL Hemoglobin 11.8 L 12.2-16.2 g/dL Hematocrit 36.0 36.0-46.0 % Mean Corpuscular Volume 92.6 80.0-100.0 fL Mean Corpuscular Hemoglobin 30.4 28.0-32.0 pg Mean Corpuscular Hemoglobin Concent 32.8 32.0-36.0 g/dL Red Cell Distribution Width 17.9 H 11.8-14.3 % Platelet Count 125 L 140-450 10^3/uL Mean Platelet Volume 6.9 6.9-10.8 fL Neutrophils (%) (Auto) 62.2 37.0-80.0 % Lymphocytes (%) (Auto) 28.8 10.0-50.0 % Monocytes (%) (Auto) 7.2 0.0-12.0 % Eosinophils (%) (Auto) 1.1 0.0-7.0 % Basophils (%) (Auto) 0.7 0.0-2.0 % Neutrophils # (Auto) 2.8 1.6-8.6 10 ^3/uL Lymphocytes # (Auto) 1.3 0.4-5.4 10 ^3/uL Monocytes # (Auto) 0.3 0-1.3 10 ^3/uL Eosinophils # (Auto) 0.1 0-0.8 10 ^3/uL Basophils # (Auto) 0 0-0.2 10 ^3/uL Nucleated Red Blood Cells 0.4 % Sodium Level 137 136-145 mmol/L Potassium Level 3.6 3.5-5.1 mmol/L Chloride Level 97 L 98-107 mmol/L Carbon Dioxide Level 22 20-31 mmol/L Anion Gap 18 H 5-15 Blood Urea Nitrogen < 5 L 9-23 mg/dL Creatinine 0.56 0.550-1.02 mg/dL Glomerular Filtration Rate Calc 112 >90 mL/min BUN/Creatinine Ratio 8.9 L 10.0-20.0 Serum Glucose 146 H 74-106 mg/dL Calcium Level 8.8 8.7-10.4 mg/dL Plasma/Serum Blood Alcohol Pending Current Medications Medications (Trade) Dose Ordered Sig/Gunnar Route Start Time Stop Time Status Last Admin Sodium Chloride 1,000 ml @ 1,000 mls/hr Q1H ONCE IV 02/13/25 23:00 02/13/25 23:59 DC 02/14/25 00:05 Lorazepam (Ativan Inj) 1 mg ONCE ONCE IV 02/13/25 23:00 02/13/25 23:03 DC 02/14/25 00:05 PROCEDURE(s): CXR2 - CHEST TWO VIEWS ROUTINE IMPRESSION: 1. Small right pleural effusion. IV Hep-Lock was established. The patient was given a 1 L bolus of normal saline The patient was given Ativan 1 mg push The patient's CBC and chemistry panel are within normal limits The troponin level is negative The patient is being discharged and will follow up with the primary care doctor The patient was given a prescription of Zofran and Librium Time of 1ST Reevaluation: 23:20 Reevaluation 1ST: Unchanged Patient Education/Counseling: Diagnosis, Treatment, Prognosis Family Education/Counseling: No Family Present SEPSIS Sepsis Screen Date sepsis recognized/suspect: Feb 13, 2025 Time Sepsis recognized/suspect: 2239 Recent Procedure: No On Antibiotic Therapy: No Respiratory Rate >20: No Heart Rate >90: Yes Temp<36 C (96.8 F) or >38.3 C: No SBP <90 or MAP <65 mmHG: No New Acute Mental Status Change: No Is the patient on CPAP, BIPAP,: No Physician Orders Basic Metabolic Panel (02/13/25 22:54) Chest Two Views Routine (02/13/25 22:54) Heplock Iv (02/13/25 22:54) Blood Alcohol (02/13/25 22:54) Troponin-I Hs (02/13/25 23:54) Troponin-I Hs (02/14/25 01:54) Vital Signs Date Time Temp Pulse Resp B/P (MAP) Pulse Ox O2 Delivery O2 Flow Rate FiO2 02/13/25 23:25 123 02/13/25 23:15 98.0 124 17 140/76 (97) 98 98.0 02/13/25 22:51 225 02/13/25 22:44 20 97 Room Air* 0 21 02/13/25 22:40 97.7 122 20 159/109 97 97.7 Laboratory Tests Test 02/13/25 23:09 White Blood Count 4.5 10^3/uL (4.4-10.8) Medications Medications Dose Ordered Sig/Gunnar Route Start Time Stop Time Status Last Admin Dose Admin Lorazepam 1 mg ONCE ONCE IV 02/13/25 23:00 02/13/25 23:03 DC 02/14/25 00:05 Sodium Chloride 1,000 ml @ 1,000 mls/hr Q1H ONCE IV 02/13/25 23:00 02/13/25 23:59 DC 02/14/25 00:05 Departure 1 Departure Time of Disposition: 00:37 Impression: Primary Impression: Alcohol withdrawal Qualified Codes: F10.930 - Alcohol use, unspecified with withdrawal, uncomplicated Disposition: HOME / SELF CARE / HOMELESS Condition: Fair e-Prescriptions Ondansetron Odt 4MG Tab (ZOFRAN PO) 4 Mg Tb 4 MG PO Q8HP PRN for 7 Days, #21 TAB ODT TAB-DISSOLVE IN MOUTH, THEN SWALLOW Prov: NIRAJ GARCIA MD 02/14/25 Chlordiazepoxide Hcl (Ni-1) (I (Librium) 10 Mg Cap 10 MG PO BID for 10 Days, #20 CAP Prov: NIRAJ GARCIA MD 02/14/25 Discharged With: Self Critical Care Note Critical Care Time?: No Stability Stability form required: No Heart Score Heart Score: Heart Score Response (Comments) Value History Slightly Suspicious 0 EKG Normal 0 Age 45-64 1 Risk Factors 1 or 2 risk factors 1 Troponin Normal limit 0 Total 2 I personally scribed for NIRAJ GARCIA MD ([email or web address]) on 02/13/25 at 23:25. Electronically submitted by Ciaran Her ([email or web address]). I personally scribed for NIRAJ GARCIA MD ([email or web address]) on 02/14/25 at 00:32. Electronically submitted by Ciaran Her ([email or web address]). NIRAJ GARCIA MD Feb 13, 2025 23:25
[2025-02-13 23:32] LABS: Hematocrit 36.0 % (36.0-46.0); Hemoglobin 11.8 g/dL (12.2-16.2); Mean Corpuscular Hemoglobin 30.4 pg (28.0-32.0); Mean Corpuscular Volume 92.6 fL (80.0-100.0); Nucleated Red Blood Cells % 0.4 %
[2025-02-13 23:51] LABS: Potassium 3.6 mmol/L (3.5-5.1); Sodium 137 mmol/L (136-145)
[2025-02-13 23:52] LABS: Anion Gap 18 (5-15); Calcium 8.8 mg/dL (8.7-10.4); Carbon Dioxide 22 mmol/L (20-31)
[2025-02-13 23:54] LABS: Chloride 97 mmol/L (98-107)
[2025-02-14] MEDS: SODIUM CHLORIDE 0.9% 1,000 ML IV ONE (00:05)
[2025-02-14] MEDS: LORazepam 2MG/ML-1ML VIAL IV ONE (00:05)
[2025-02-14 00:13] LABS: BUN/Creatinine Ratio 8.9 (10.0-20.0); Blood Urea Nitrogen < 5 mg/dL (9-23); Glucose 146 mg/dL (74-106)
--- NOTE | 2025-02-14 00:19 | DVH ---
CHEST RADIOGRAPH Indication: sob Technique: Frontal and lateral view of the chest was obtained Comparison: XY CHEST TWO VIEWS ROUTINE on DOS: 12/22/24 FINDINGS: Lines and Tubes: None Lungs: Small right pleural effusion. No evidence of focal consolidation. No pneumothorax. Cardiomediastinal contours: Unremarkable Bones: Unremarkable IMPRESSION: 1. Small right pleural effusion.
[2025-02-14] MEDS ORDERED: ZOFR4T PO (00:34)
[2025-02-14] MEDS ORDERED: CHL10C PO (00:34)
[2025-02-14 01:39] VITALS: RESP 18; O2SAT 97
[2025-02-14 01:56] VITALS: BP 151/77; PULSE 116; RESP 18; TEMP 99; O2SAT 98
--- NOTE | 2025-02-15 10:44 | ECG ---
[facility] Test Date: 2025-02-13 Test Time: 22:51:04 Pat Name: GERARDO REID Department: ED Room: Gender: F Step Finisher: : 1975 Requested By: NIRAJ GARCIA Order Number: [id number] Reading MD: Bo Gayle Measurements Intervals [place] Rate: 123 P: 0 MN: 0 QRS: 74 QRSD: 81 T: 70 QT: 337 QTc: 482 Interpretive Statements Atrial flutter with predominant 2:1 AV block Electronically Signed On 02-16-2025 17:45:11 PST by Bo Gayle Please click the below link to view image of tracing.
== END 2025-02-14 02:03 | disposition home or self-care (01) ==
LOC: ER 22:38
DX: F10.239 Alcohol dependence with withdrawal, unspecified (principal); E11.9 Type 2 diabetes mellitus without complications; E66.9 Obesity, unspecified; J90 Pleural effusion, not elsewhere classified; Z79.84 Long term (current) use of oral hypoglycemic drugs; Z79.899 Other long term (current) drug therapy; Z98.890 Other specified postprocedural states; Y90.2 Blood alcohol level of 40-59 mg/100 ml
CPT/HCPCS: 36415; 71046; 80048; 80320; 84484; 85025; 93005; 96374; 99285; J2060; J7030